=== PATIENT | female | born 1965 | race African-American/Black ===

== ENCOUNTER 2023-10-16 18:30 | Emergency (ER) | payer BC, SELFPAY ==
--- NOTE | ~2023-10-16 | XR_ITS ---
EXAMINATION: XR chest 2V DATE: 10/16/2023 19:26 INDICATION: Productive cough and fever TECHNIQUE: PA and lateral views of the chest were obtained. COMPARISON: None FINDINGS: The lungs are clear with no focal airspace opacities, pulmonary edema, pleural effusion or pneumothor ax. The cardiomediastinal silhouette is normal. Visualized bones and soft tissues are unremarkable. IMPRESSION: 1. No acute cardiopulmonary disease. Reviewed, dictated and finalized at location A.
[2023-10-16 18:50] VITALS: BP 157/58; PULSE 125; RESP 16; TEMP 39.5; O2SAT 97
[2023-10-16] MEDS: ONDANSETRON HCL ODT 4 MG TABLET PO (19:26)
[2023-10-16] MEDS: ACETAMINOPHEN 500 MG TABLET 1000 MG PO (19:27)
--- NOTE | 2023-10-16 19:33 | ED.GENADULT ---
HPI - General Adult General Chief complaint: Upper Respiratory Infection Stated complaint: cough, worn out, difficult taking full breath Source: patient Mode of arrival: ambulatory Limitations: no limitations History of Present Illness HPI narrative: Patient presents for evaluation of a cough for the last month. Cough is nonproductive. She has occasional mild shortness of breath and fatigue which she attributes to coughing. She denies any fever at home but temperature 103.1 on arrival. She denies any nausea, vomiting, chest pain, sore throat or other infectious symptoms. No recent sick contacts to her knowledge. She tried taking Coricidin and Mucinex DM without much improvement in her symptoms thereafter. She does not smoke. She does take lisinopril but this is not a new medication for her. Related Data Home Medications Medication Instructions Recorded Confirmed atorvastatin 40 mg tablet 40 mg PO DAILY 10/16/23 10/16/23 insulin lispro 100 unit/mL See Rx Instructions .Route .COMPLEX 10/16/23 10/16/23 subcutaneous solution (Humalog U-100 Insulin) lisinopril 10 mg tablet 10 mg PO DAILY 10/16/23 10/16/23 Allergies Allergy/AdvReac Type Severity Reaction Status Date / Time No Known Allergies Allergy Verified 10/16/23 19:00 Review of Systems Review of Systems: CONSTITUTIONAL: Reports fatigue. Denies fever, chills, or sweats. EYES: Denies visual changes, redness, or discharge. ENT: Denies rhinorrhea, congestion, sore throat, or otalgia. CARDIOVASCULAR: Denies chest pain, palpitations, or edema. RESPIRATORY: Reports nonproductive cough and mild shortness of breath GASTROINTESTINAL: Denies abdominal pain, nausea, vomiting, or diarrhea. GENITOURINARY: Denies dysuria or hematuria. SKIN: Denies rash or itching. MUSCULOSKELETAL: Denies back pain, joint pain, or myalgia. NEUROLOGIC: Denies headache, numbness, dizziness, or weakness. PSYCHIATRIC: Denies anxiety or depression. [facility] Past Medical History Medical History Hyperlipidemia Hypertension Surgical History Surgical History No pertinent past surgical history Family History Family History Mother Family history non-contributory Social History Social History Smoking status: Never smoker Substance use: never Living arrangements: alone Gender identity (if verbalized by the patient): Female Spiritual care concerns: No Exam Narrative: GENERAL: Well-appearing, well-nourished, and in no acute distress. HEAD: Normocephalic, atraumatic. EYES: PERRLA and EOMI. ENT: Nares clear, no rhinorrhea or epistaxis. Mucous membranes moist. Oropharynx without tonsillar hypertrophy exudate or other lesions. Bilateral TMs pearly saenz nonbulging NECK: Supple. No adenopathy or masses. No carotid bruits or JVD CHEST: Cough present on exam. Clear to auscultation. No respiratory distress. No wheezes rales or rhonchi HEART: Rate 120. Regular rhythm. No murmur heard. Normal peripheral pulses. ABDOMEN: Soft, nontender, nondistended, normal active bowel sounds. EXTREMITIES: Normal range of motion. No edema. SKIN: Warm, dry, no rash. NEURO: No focal deficits. Alert and oriented x3. PSYCH: Normal mood and affect. Course Course Emergency Course: This is a 58-year-old female who presented for evaluation of a cough for the last month. COVID and flu were negative. Chest x-ray normal. She was tachycardic and febrile on arrival. I gave her a 1000 mg of Tylenol. Her temperature improved. She and I walked in the hallway together and her heart rate was in the 130's. we attempted to orally hydrate her here. She indicates she has not been doing the best with oral hydration at home. Would likely be in her best inte
[2023-10-16 19:58] VITALS: PULSE 112; TEMP 38.7
== END 2023-10-16 20:14 | disposition short-term general hospital (02) ==
PROVIDERS: Emergency Provider Nurse Practitioner
DX: R00.0 Tachycardia, unspecified (principal); R05.9 Cough, unspecified; E78.5 Hyperlipidemia, unspecified; I10 Essential (primary) hypertension
CPT/HCPCS: 71046; 99203; A9270; G0463

== ENCOUNTER 2023-10-16 21:49 | Emergency (ER) | payer BC, SELFPAY ==
[2023-10-16 21:56] VITALS: BP 123/60; PULSE 102; RESP 14; TEMP 37; O2SAT 98
--- NOTE | 2023-10-16 22:03 | ECG_ITS ---
Test Date: 2023-10-16 22:09:41 Measurements Intervals [place] Rate: 97 P: 29 MD: 143 QRS: 20 QRSD: 91 T: 41 QT: 339 QTc: 431 Interpretive Statements SINUS RHYTHM LOW QRS VOLTAGE IN PRECORDIAL LEADS [QRS DEFLECTION < 1.0 mV IN CHEST LEADS] INCOMPLETE RIGHT BUNDLE BRANCH BLOCK [90+ ms QRS DURATION, TERMINAL R IN V1/V2, 40+ ms S IN I/aVL/V4/V5/V6] BORDERLINE ECG No previous ECG available for comparison Electronically Signed On 10-18-2023 10:45:36 CDT by Amado Fuentes M.D.
--- NOTE | 2023-10-17 01:40 | ED.GENADULT ---
[facility] - General Adult General Chief complaint: Unspecified Stated complaint: palpations Time Seen by Provider: 10/17/23 01:30 Source: patient Mode of arrival: ambulatory Limitations: no limitations History of Present Illness HPI narrative: This is a 58-year-old female With PMH of insulin-dependent diabetes , HTN who presents to the ED for chief complaint of cough x1 month. Reports that the cough has worsening but is only mildly productive. States that she went to urgent care today who wanted her to be seen for elevated heart rate and fever. States that they gave her g of Tylenol there and Zofran for nausea. Patient states that she has had some mild headache as well as feeling very fatigued today. Denies any recent sick contacts. denies chest pain, shortness breath pain, vomiting. Related Data Home Medications Medication Instructions Recorded Confirmed atorvastatin 40 mg tablet 40 mg PO DAILY 10/16/23 10/16/23 insulin lispro 100 unit/mL See Rx Instructions .Route .COMPLEX 10/16/23 10/16/23 subcutaneous solution (Humalog U-100 Insulin) lisinopril 10 mg tablet 10 mg PO DAILY 10/16/23 10/16/23 Allergies Allergy/AdvReac Type Severity Reaction Status Date / Time No Known Allergies Allergy Verified 10/16/23 19:00 Review of Systems Review of Systems: All systems as dictated in [facility] Past Medical History Medical History Hyperlipidemia Hypertension Surgical History Surgical History No pertinent past surgical history Family History Family History Mother Family history non-contributory Social History Social History Smoking status: Never smoker Substance use: never Living arrangements: alone Gender identity (if verbalized by the patient): Female Spiritual care concerns: No Exam Narrative: GENERAL: Well-appearing, well-nourished, and in no acute distress. HEAD: Normocephalic, atraumatic. EYES: PERRLA and EOMI. ENT: Nares clear, no rhinorrhea or epistaxis. Mucous membranes moist. Oropharynx without tonsillar hypertrophy exudate or other lesions. NECK: Supple. No adenopathy or masses. CHEST: No respiratory distress. 98% room air. Questionable adventitious sounds in the bilateral bases. HEART: Regular rate and rhythm. No murmur heard. Normal peripheral pulses. ABDOMEN: Soft, nontender, nondistended, normal active bowel sounds. MSK: Normal range of motion. No edema. SKIN: Warm, dry, no rash. NEURO: Alert and oriented x4. No focal deficits. PSYCH: Normal mood and affect. Course Vital Signs Vital signs: Vital Signs Temperature 98.6 F 10/16/23 21:56 Pulse Rate 102 H 10/16/23 21:56 Respiratory Rate 14 10/16/23 21:56 Blood Pressure 123/60 10/16/23 21:56 Pulse Oximetry 98 10/16/23 21:56 Oxygen Delivery Room Air 10/16/23 21:56 Temperature 98.6 F 10/16/23 21:56 Pulse Rate 96 10/17/23 03:10 Respiratory Rate 15 10/17/23 03:10 Blood Pressure 132/88 10/17/23 03:10 Pulse Oximetry 100 10/17/23 03:10 Oxygen Delivery Room Air 10/16/23 21:56 Medical Decision Making MDM Narrative Medical decision making narrative: This is a 58-year-old female who presents to the ED for chief complaint of worsening cough for the past month. Vitals are normal here. She was given Tylenol by urgent care for fevers today. Exam shows questionable adventitious lung sounds heard in the bases. Chest x-ray done urgent care today is negative. BMP unremarkable. CBC shows elevated WBC at 14.9. symptoms are most likely consistent with pneumonia. She is curb 65 score of 0. Will be prescribed Augmentin and doxycycline. Pt will be discharged in stable condition. Return precautions given and supportive measures d
[2023-10-17 02:05] LABS: Basophils Absolute Auto 0.1 K/mm3 (0.0-0.1); Basophils Percent Auto 0.3 % (0.2-1.2); Eosinophils Percent Auto 0.1 % (0-4.4); Hemoglobin 11.3 g/dL (12.0-15.0); Immature Granulocyte Absolute 0.11 K/mm3 (0.00-0.031); Immature Granulocyte Percent A 0.7 % (0-0.5); Lymphocytes Absolute Auto 1.78 K/mm3 (0.9-3.2); Mean Corpuscular HGB Conc 31.4 g/dl (32-36); Mean Corpuscular Volume 86.1 fl (80-100); Mean Platelet Volume 10.8 fl (7.4-10.4); Monocytes Absolute Auto 1.9 K/mm3 (0.1-0.6); Monocytes Percent Auto 12.7 % (2.6-8.5); Neutrophils Percent Auto 74.2 % (45.5-73.1); Platelet Count Result 222 k/mm3 (150-375); Red Blood Count 4.18 M/mm3 (4.2-5.4); Red Cell Distribution Width 13.2 % (11.5-14.5); White Blood Count 14.9 K/mm3 (4.5-10.0)
[2023-10-17 02:13] LABS: Anion Gap 12 mmol/L (4-12); Blood Urea Nitrogen 19 mg/dL (7-17); Calcium 9.3 mg/dL (8.4-10.2); Carbon Dioxide 26 mmol/L (22-30); Chloride 100 mmol/L (98-107); Estimated CRCL calculation 41 ml/min; Estimated Glomerular Filt Rate 56; Glucose 175 mg/dL (65-110); Potassium 3.6 mmol/L (3.4-5.0); Sodium 138 mmol/L (137-145)
[2023-10-17 02:16] VITALS: RESP 18
[2023-10-17] MEDS: DOXYCYCLINE HYCLATE 100 MG TABLET PO (02:52)
[2023-10-17] MEDS: AMOXICILLIN/CLAVULANATE K 875-125 MG TAB 1 TABLET PO (02:52)
[2023-10-17 03:10] VITALS: BP 132/88; PULSE 96; RESP 15; O2SAT 100
== END 2023-10-17 03:11 | disposition home or self-care (01) ==
PROVIDERS: Emergency Provider Physician Assistant
DX: J18.9 Pneumonia, unspecified organism (principal); I10 Essential (primary) hypertension; E11.9 Type 2 diabetes mellitus without complications; E78.5 Hyperlipidemia, unspecified; Z79.4 Long term (current) use of insulin; Z79.899 Other long term (current) drug therapy
CPT/HCPCS: 36415; 71046; 80048; 85025; 93005; 99283; A9270